=== PATIENT | female | born 1990 | race Caucasian/White ===

== ENCOUNTER 2023-07-11 18:54 | Emergency (ER) | payer OTHER ==
[~2023-07-11] VITALS: Ht 182.9 cm; Wt 163.2 kg
[2023-07-11 20:16] VITALS: BP 138/88
== END 2023-07-11 20:15 | disposition home or self-care (01) ==
LOC: ED 18:54
DX: S61.211A Laceration without foreign body of left index finger without damage to nail, initial encounter (principal); W26.0XXA Contact with knife, initial encounter; Y93.G9 Activity, other involving cooking and grilling
CPT/HCPCS: 12001; 90471; 90715; 99282